=== PATIENT | male | born 1960 | race Caucasian/White ===

== ENCOUNTER 2017-11-04 10:00 | Inpatient (IN) | payer OTHER ==
[2017-11-04 15:07] VITALS: BMI 30.4
--- NOTE | 2017-11-04 15:21 | HP ---
CIWA Score - CIWA Score Nausea/Vomitin Muscle Tremors: 3 Anxiety: 3 Agitation: 3 Paroxysmal Sweats: 2 Orientation: 0-Oriented Tacttile Disturbances: 2-Mild Itch/Numbness/Burn Auditory Disturbances: 2-Mild Harshness/Frighten Visual Disturbances: 2-Mild Sensitivity Headache: 2-Mild CIWA-Ar Total Score: 22 Admission ROS BHS - HPI Chief Complaint: I NEED HELP TO STOP DRINKING ALCOHOL Allergies/Adverse Reactions: Allergies Allergy/AdvReac Type Severity Reaction Status Date / Time pollen extracts Allergy Severe Verified 11/04/17 15:16 History of Present Illness: THIS 57 YEARS OLD MALE WITH ALCOHOL DEPENDENCE,SEEKING DETOX,WITHDRAWAL SYMPTOM, LAST DETOX [facility] 06/17 SYNCOPE DENIED MEDICAL PROBLEM EXCEPT GLAUCOMA BOTH EYES LEGALLY BLIND RIGHT DETACHED RETINA ,GLAUCOMA GLAUCOMA LEFT ,DETACHED RETINA ANXIETY,DEPRESSION,INSOMNIA LONGEST PERIOD OF SOBRIETY 20 YEARS - Ebola screening Have you traveled outside of the country in the last 21 days: No Have you had contact with anyone from an Ebola affected area: No Have you been sick,other than usual withdrawal symptoms: No Do you have a fever: No - Review of Systems Constitutional: Loss of Appetite, Malaise, Night Sweats, Weakness EENT: reports: Nose Congestion, Other (LEGALLY BLINDNESS OF RIGHT GLAUCOMA LEFT ) Respiratory: reports: No Symptoms reported Cardiac: reports: No Symptoms Reported GI: reports: Diarrhea, Nausea, Vomiting, Abdominal cramping : reports: No Symptoms Reported Musculoskeletal: reports: Back Pain, Muscle Pain Integumentary: reports: Dryness Neuro: reports: Headache, Tremors Endocrine: reports: No Symptoms Reported Hematology: reports: No Symptoms Reported Psychiatric: reports: No Sypmtoms Reported, Judgement Intact, Mood/Affect Appropiate, Anxious (INSOMNIA), Depressed Patient History - Patient Medical History Hx Anemia: No Hx Asthma: No Hx Chronic Obstructive Pulmonary Disease (COPD): No Hx Cancer: No Hx Cardiac Disorders: No Hx Congestive Heart Failure: No Hx Hypertension: No Hx Hypercholesterolemia: No Hx Pacemaker: No HX Cerebrovascular Accident: No Hx Seizures: No Hx Dementia: No Hx Diabetes: No Hx Gastrointestinal Disorders: No Hx Liver Disease: No Hx Genitourinary Disorders: No Hx Sexually Transmitted Disorders: No Hx Renal Disease (ESRD): No Hx Thyroid Disease: No Hx Human Immunodeficiency Virus (HIV): No (2015) Hx Hepatitis C: No Hx Depression: Yes (ANXIETY) Hx Suicide Attempt: No Hx Bipolar Disorder: No Hx Schizophrenia: No Other Medical History: NO SUICDAL,NO HOMICIDAL - Patient Surgical History Past Surgical History: Yes Other Surgical History: DETACHED RETINA,BLINDNESS OF RIGHT EYE,GLUCOMA LEFT EYE - PPD History Previous Implant?: Yes Documented Results: Negative w/o proof Implanted On Prior [facility] Admission?: No PPD to be Administered?: Yes - Smoking Cessation Smoking history: Never smoked - Substance & Tx. History Hx Alcohol Use: Yes Hx Substance Use: No Substance Use Type: Alcohol Hx Substance Use Treatment: Yes ([facility] 06/2017) - Substances Abused Alcohol Route: Oral Frequency: Daily Amount used: 1 BOTTLE WINE Age of first use: 17 Date of Last Use: 11/03/17 Family Disease History - Family Disease History Family Disease History: Other: Father (ALCOHOL,), Mother (ALCOHOL, ) Admission Physical Exam S - Vital Signs Vital Signs: Vital Signs - 24 hr 11/04/17 15:02 Temperature 98.6 F Pulse Rate 106 H Respiratory 20 Rate Blood Pressure 136/59 - Physical General Appearance: Yes: Moderate Distress, Tremorous, Irritable, Sweating, Anxious HEENTM: Yes: Normal ENT Inspection (LEGALLY BLIND RIGHT POOR VISOIN LEFT GLAUCOMA,DETACHED RETINA LEFT), Pharynx Normal Respiratory: Yes: Lungs Clear, Normal Breath Sounds, No Respiratory Distress Neck: Yes: Within Normal Limits, Supple, Trachea in good position Breast: Yes: Within Normal Limits Cardiology: Yes: Within Normal Limits, Regular Rhythm, Regular Rate, S1, S2 Abdominal: Yes: Within Normal Limits, Normal Bowel Sounds, Non Tender, Flat, Soft Genitourinary: Yes: Within Normal Limits Back: Yes: Muscle Spasm Musculoskeletal: Yes: full range of Motion, Back pain, Muscle Pain Extremities: Yes: Tremors Neurological: Yes: financial aid counselor II-XII NML intact, Fully Oriented, Alert, Motor Strength 5/5 Integumentary: Yes: Dry Lymphatic: Yes: Within Normal Limits - Diagnostic (1) Alcohol dependence with uncomplicated withdrawal Current Visit: Yes Status: Acute (2) Syncope Current Visit: Yes Status: Acute (3) Blindness of right eye Current Visit: Yes Status: Acute (4) Glaucoma, left eye Current Visit: Yes Status: Acute (5) Insomnia secondary to depression with anxiety Current Visit: Yes Status: Acute (6) Uncomplicated sedative, hypnotic or anxiolytic withdrawal Current Visit: Yes Status: Acute Cleared for Admission [facility] - Detox or Rehab [facility] Level of Care: Medically Managed Detox Regimen/Protocol: Librium [facility] Breath Alcohol Content Breath Alcohol Content: 0 Urine Drug Screen - Results Drug Screen Negative: No Urine Drug Screen Results: TCA-Tricyclic Antidepress
[2017-11-04] MEDS ORDERED: guaiFENesin/D-METHORPHAN HB 10 ML UNIT-DOSE CUPS PO PRN (15:38)
[2017-11-04] MEDS ORDERED: MAG HYDROX/AL HYDROX/SIMETH 30 ML UNIT-DOSE CUP PO PRN (15:38)
[2017-11-04] MEDS ORDERED: MAGNESIUM HYDROX 2400MG/30ML ORAL SUSPENSION 30 ML CUP PO PRN (15:38)
[2017-11-04] MEDS ORDERED: hydrOXYzine PAMOATE 50 MG CAPSULE (FP) PO PRN (15:38)
[2017-11-04] MEDS ORDERED: P-EPHED 60MG/TRIPROLIDI 2.5MG TABLET PO PRN (15:38)
[2017-11-04] MEDS ORDERED: MENTHOL/PHENOL 1 EACH UD MM PRN (15:38)
[2017-11-04] MEDS ORDERED: IBUPROFEN 400 MG TABLET (FP) PO PRN (15:38)
[2017-11-04] MEDS ORDERED: chlordiazePOXIDE HCL 25 MG CAPSULE PO PRN (15:38)
[2017-11-04] MEDS ORDERED: ACETAMINOPHEN 325 MG TABLET (FP) PO PRN (15:38)
[2017-11-04] MEDS ORDERED: chlordiazePOXIDE HCL 25 MG CAPSULE PO ONE (15:38)
[2017-11-04] MEDS ORDERED: MAGNESIUM CITRATE 300 ML BOTTLE PO PRN (15:38)
[2017-11-04] MEDS ORDERED: LOPERAMIDE HCL 2 MG CAPSULE PO PRN (15:38)
[2017-11-04] MEDS: chlordiazePOXIDE HCL 25 MG CAPSULE PO SCH ×2 (18:27→22:10)
[2017-11-04] MEDS ORDERED: DORZOLAMIDE 2% HCL OPHTHALMIC SOLUTION 10 ML BOTTLE OS SCH (22:00)
[2017-11-04] MEDS ORDERED: TIMOLOL 0.5% OPHTHALMIC SOL 5 ML BOTTLE OS SCH (22:00)
[2017-11-04] MEDS: MELATONIN 5 MG TABLETS PO PRN (22:10)
[2017-11-04] MEDS: PATIENT'S OWN MEDICATION (NON-FORMULARY) (Brimonidine Tartrate/Timolol [Combigan 0.2%-0.5% OS SCH (22:10)
[2017-11-04] MEDS: THIAMINE HCL 100 MG TABLET (FP) PO SCH (22:11)
[2017-11-05] MEDS: chlordiazePOXIDE HCL 25 MG CAPSULE PO SCH ×4 (05:38→22:05)
[2017-11-05] MEDS: PRENATAL VITAMINS W/ FOLIC ACID TABLET (FP) PO SCH (10:10)
[2017-11-05] MEDS: PATIENT'S OWN MEDICATION (NON-FORMULARY) (Brimonidine Tartrate/Timolol [Combigan 0.2%-0.5% OS SCH ×2 (10:10→22:05)
--- NOTE | 2017-11-05 10:39 | EKG ---
Test Reason : Blood Pressure : / mmHG Vent. Rate : 089 BPM Atrial Rate : 089 BPM P-R Int : 182 ms QRS Dur : 090 ms QT Int : 374 ms P-R-T Axes : 028 -32 016 degrees QTc Int : 455 ms NORMAL SINUS RHYTHM WITH SINUS ARRHYTHMIA LEFT AXIS DEVIATION VOLTAGE CRITERIA FOR LEFT VENTRICULAR HYPERTROPHY ABNORMAL ECG NO PREVIOUS ECGS AVAILABLE Confirmed by TACOS GARCIA MD ([id number]) on 11/05/2017 10:39:13 AM Referred By: Confirmed By:TACOS GARCIA MD
[2017-11-05 11:14] LABS: HEMATOCRIT 41.2 % (35.4-49); HEMOGLOBIN 14.1 GM/dL (11.7-16.9); MCH 32.4 pg (25.7-33.7); MCHC 34.2 g/dl (32.0-35.9); MEAN CELL VOLUME 94.7 fl (80-96); MEAN PLT VOLUME 7.3 fl (7.5-11.1); PLATELET COUNT 128 K/MM3 (134-434); RBC 4.35 M/mm3 (4.00-5.60); WHITE BLOOD COUNT 3.9 K/mm3 (4.0-10.0)
[2017-11-05 11:34] LABS: CHLORIDE 100 mmol/L (98-107); POTASSIUM 3.1 mmol/L (3.5-5.1); SODIUM 136 mmol/L (136-145)
[2017-11-05 11:58] LABS: ALBUMIN 3.7 g/dl (3.4-5.0); ANION GAP 8 (8-16); BILIRUBIN,TOTAL 1.1 mg/dL (0.2-1.0); BLOOD UREA NITROGEN 15 mg/dL (7-18); CALCIUM 8.6 mg/dL (8.5-10.1); CO2 28 mmol/L (21-32); CREATININE 0.8 mg/dL (0.7-1.3); GLUCOSE,RANDOM 100 mg/dL (74-106); SGOT/AST 76 U/L (15-37); SGPT/ALT 72 U/L (12-78); TOT PROT 6.6 g/dl (6.4-8.2)
[2017-11-05 12:13] LABS: ALK PHOS 72 U/L (45-117)
--- NOTE | 2017-11-05 12:46 | PN ---
S CIWA - CIWA Score Nausea/Vomitin Muscle Tremors: 2 Anxiety: 2 Agitation: 2 Paroxysmal Sweats: 2 Orientation: 0-Oriented Tacttile Disturbances: 1-Very Mild Itch/Numbness Auditory Disturbances: 1-Very Mild Visual Disturbances: 1-Very Mild Sensitivity Headache: 2-Mild CIWA-Ar Total Score: 15 S Progress Note (SOAP) Subjective: Interrupted sleep, abdominal discomfort, generalized muscle aches Objective: 11/05/17 12:45 Vital Signs 11/05/17 11/05/17 06:00 10:00 Temperature 97.2 F L 95.6 F L Pulse Rate 69 90 Respiratory 18 20 Rate Blood Pressure 120/77 127/70 Laboratory Last Values WBC 3.9 K/mm3 (4.0-10.0) L 11/05/17 08:00 RBC 4.35 M/mm3 (4.00-5.60) 11/05/17 08:00 Hgb 14.1 GM/dL (11.7-16.9) 11/05/17 08:00 Hct 41.2 % (35.4-49) 11/05/17 08:00 MCV 94.7 fl (80-96) 11/05/17 08:00 MCH 32.4 pg (25.7-33.7) 11/05/17 08:00 MCHC 34.2 g/dl (32.0-35.9) 11/05/17 08:00 RDW 14.0 % (11.9-15.9) 11/05/17 08:00 Plt Count 128 K/MM3 (134-434) L 11/05/17 08:00 MPV 7.3 fl (7.5-11.1) L 11/05/17 08:00 Sodium 136 mmol/L (136-145) 11/05/17 08:00 Potassium 3.1 mmol/L (3.5-5.1) L 11/05/17 08:00 Chloride 100 mmol/L (98-107) 11/05/17 08:00 Carbon Dioxide 28 mmol/L (21-32) 11/05/17 08:00 Anion Gap 8 (8-16) 11/05/17 08:00 BUN 15 mg/dL (7-18) 11/05/17 08:00 Creatinine 0.8 mg/dL (0.7-1.3) 11/05/17 08:00 Creat Clearance w eGFR > 60 (>60) 11/05/17 08:00 Random Glucose 100 mg/dL (74-106) 11/05/17 08:00 Calcium 8.6 mg/dL (8.5-10.1) 11/05/17 08:00 Total Bilirubin 1.1 mg/dL (0.2-1.0) H 11/05/17 08:00 AST 76 U/L (15-37) H 11/05/17 08:00 ALT 72 U/L (12-78) 11/05/17 08:00 Alkaline Phosphatase 72 U/L (45-117) 11/05/17 08:00 Total Protein 6.6 g/dl (6.4-8.2) 11/05/17 08:00 Albumin 3.7 g/dl (3.4-5.0) 11/05/17 08:00 Labs noted Low potassium level Assessment: 11/05/17 12:45 Withdrawal sx Hypokalemia Plan: Continue detox Potassium supplement 20meq Repeat BMP on 11/07
[2017-11-05] MEDS: POTASSIUM CHLORIDE TABS 20 MEQ TABLET.ER (FP) PO SCH (13:47)
--- NOTE | 2017-11-05 16:02 | CONSULT ---
[facility] Psychiatric Consult - Data Date of interview: 11/05/17 Admission source: [facility] Identifying data: First admission to [facility] for this 57 y/o male seeking detox treatment on for alcohol dependence.Patient is ,a father of one,domiciled and currently employed. Substance Abuse History: Confirmed by patient.Mr Pacheco admits to a 40 year history of alcohol abuse.Details in the current [facility] report : Smoking history: Never smoked. - Substance & Tx. History. Hx Alcohol Use: Yes. Hx Substance Use: No. Substance Use Type: Alcohol. Hx Substance Use Treatment: Yes ([facility] 06/2017). - Substances Abused. Alcohol. Route: Oral. Frequency: Daily. Amount used: 1 BOTTLE WINE. Age of first use: 17. Date of Last Use: Medical History: Glaucoma (left eye),blindness in the right eye (detached retina ).Otherwise the patient endorses good general health. Psychiatric History: Patient denies history of mental illness,psychiatric hospitalizations or OPD care.Mr Pacheco denies history of suicide attempts. Physical/Sexual Abuse/Trauma History: No history. Additional Comment: Urine Drug Screen Results: TCA-Tricyclic Antidepressant.Noted. Mental Status Exam - Mental Status Exam Alert and Oriented to: Time, Place, Person Cognitive Function: Good Patient Appearance: Well Groomed (overweight) Mood: Hopeful, Euthymic Affect: Appropriate, Normal Range Patient Behavior: Fatigued, Appropriate, Cooperative Speech Pattern: Clear, Appropriate Voice Loudness: Normal Thought Process: Intact, Goal Oriented Thought Disorder: Not Present Hallucinations: Denies Suicidal Ideation: Denies Homicidal Ideation: Denies Insight/Judgement: Fair Sleep: Well Appetite: Good Muscle strength/Tone: Normal Gait/Station: Normal Psychiatric Findings - Problem List ([place] 1, 2,3) (1) Alcohol dependence with uncomplicated withdrawal Current Visit: Yes Status: Acute - Initial Treatment Plan Initial Treatment Plan: Psychoeducation.Support.Detoxification.Observe treatment course.
[2017-11-05] MEDS: THIAMINE HCL 100 MG TABLET (FP) PO SCH (22:05)
[2017-11-05] MEDS: MELATONIN 5 MG TABLETS PO PRN (22:07)
[2017-11-06] MEDS: chlordiazePOXIDE HCL 25 MG CAPSULE PO SCH ×2 (05:17→10:08)
--- NOTE | 2017-11-06 09:22 | EKG ---
Test Reason : Blood Pressure : / mmHG Vent. Rate : 072 BPM Atrial Rate : 072 BPM P-R Int : 194 ms QRS Dur : 096 ms QT Int : 402 ms P-R-T Axes : 055 -30 003 degrees QTc Int : 440 ms NORMAL SINUS RHYTHM LEFT AXIS DEVIATION MODERATE VOLTAGE CRITERIA FOR LVH, MAY BE NORMAL VARIANT ABNORMAL ECG WHEN COMPARED WITH ECG OF 04-NOV-2017 18:10, NO SIGNIFICANT CHANGE WAS FOUND Confirmed by RADHA CASTRO, TACOS ([id number]) on 11/06/2017 9:22:27 AM Referred By: Confirmed By:TACOS GARCIA MD
[2017-11-06] MEDS: POTASSIUM CHLORIDE TABS 20 MEQ TABLET.ER (FP) PO SCH (10:08)
[2017-11-06] MEDS: PRENATAL VITAMINS W/ FOLIC ACID TABLET (FP) PO SCH (10:08)
[2017-11-06] MEDS: PATIENT'S OWN MEDICATION (NON-FORMULARY) (Brimonidine Tartrate/Timolol [Combigan 0.2%-0.5% OS SCH ×2 (10:09→22:10)
--- NOTE | 2017-11-06 12:42 | PN ---
S CIWA - CIWA Score Nausea/Vomitin-Mild Nausea/No Vomiting Muscle Tremors: 4-Moderate,w/Arms Extend Anxiety: 3 Agitation: 3 Paroxysmal Sweats: 1-Minimal Palms Moist Orientation: 0-Oriented Tacttile Disturbances: 0-None Auditory Disturbances: 0-None Visual Disturbances: 0-None Headache: 0-None Present CIWA-Ar Total Score: 12 BHS Progress Note (SOAP) Subjective: sweat restlessness tremor anxiety Objective: 11/06/17 12:42 Vital Signs Temperature 97.3 F L 11/06/17 10:00 Pulse Rate 79 11/06/17 10:00 Respiratory Rate 16 11/06/17 10:00 Blood Pressure 118/67 11/06/17 10:00 O2 Sat by Pulse Oximetry (%) Laboratory Last Values WBC 3.9 K/mm3 (4.0-10.0) L 11/05/17 08:00 RBC 4.35 M/mm3 (4.00-5.60) 11/05/17 08:00 Hgb 14.1 GM/dL (11.7-16.9) 11/05/17 08:00 Hct 41.2 % (35.4-49) 11/05/17 08:00 MCV 94.7 fl (80-96) 11/05/17 08:00 MCH 32.4 pg (25.7-33.7) 11/05/17 08:00 MCHC 34.2 g/dl (32.0-35.9) 11/05/17 08:00 RDW 14.0 % (11.9-15.9) 11/05/17 08:00 Plt Count 128 K/MM3 (134-434) L 11/05/17 08:00 MPV 7.3 fl (7.5-11.1) L 11/05/17 08:00 Sodium 136 mmol/L (136-145) 11/05/17 08:00 Potassium 3.1 mmol/L (3.5-5.1) L 11/05/17 08:00 Chloride 100 mmol/L (98-107) 11/05/17 08:00 Carbon Dioxide 28 mmol/L (21-32) 11/05/17 08:00 Anion Gap 8 (8-16) 11/05/17 08:00 BUN 15 mg/dL (7-18) 11/05/17 08:00 Creatinine 0.8 mg/dL (0.7-1.3) 11/05/17 08:00 Creat Clearance w eGFR > 60 (>60) 11/05/17 08:00 Random Glucose 100 mg/dL (74-106) 11/05/17 08:00 Calcium 8.6 mg/dL (8.5-10.1) 11/05/17 08:00 Total Bilirubin 1.1 mg/dL (0.2-1.0) H 11/05/17 08:00 AST 76 U/L (15-37) H 11/05/17 08:00 ALT 72 U/L (12-78) 11/05/17 08:00 Alkaline Phosphatase 72 U/L (45-117) 11/05/17 08:00 Total Protein 6.6 g/dl (6.4-8.2) 11/05/17 08:00 Albumin 3.7 g/dl (3.4-5.0) 11/05/17 08:00 RPR Titer Nonreactive (NONREACTIVE) 11/05/17 08:00 lab noted 11/06/17 12:42 potassium supplement Assessment: 11/06/17 12:43 withdrawal sx hypokalemia Plan: repeat K+ 11/07/17 continue potassium
[2017-11-06] MEDS: chlordiazePOXIDE 5 MG CAPSULE PO SCH ×2 (18:24→22:10)
[2017-11-06] MEDS: MELATONIN 5 MG TABLETS PO PRN (22:10)
[2017-11-06] MEDS: THIAMINE HCL 100 MG TABLET (FP) PO SCH (22:10)
[2017-11-07] MEDS: chlordiazePOXIDE 5 MG CAPSULE PO SCH ×2 (05:06→10:11)
[2017-11-07] MEDS: PATIENT'S OWN MEDICATION (NON-FORMULARY) (Brimonidine Tartrate/Timolol [Combigan 0.2%-0.5% OS SCH ×2 (10:10→22:19)
[2017-11-07] MEDS: PRENATAL VITAMINS W/ FOLIC ACID TABLET (FP) PO SCH (10:11)
[2017-11-07] MEDS: POTASSIUM CHLORIDE TABS 20 MEQ TABLET.ER (FP) PO SCH (10:11)
--- NOTE | 2017-11-07 11:03 | PN ---
BHS Progress Note (SOAP) Subjective: felling better less sweat no tremor sleep better Objective: 11/07/17 11:02 Vital Signs Temperature 96.8 F L 11/07/17 10:05 Pulse Rate 82 11/07/17 10:05 Respiratory Rate 20 11/07/17 10:05 Blood Pressure 130/83 11/07/17 10:05 O2 Sat by Pulse Oximetry (%) Laboratory Last Values WBC 3.9 K/mm3 (4.0-10.0) L 11/05/17 08:00 RBC 4.35 M/mm3 (4.00-5.60) 11/05/17 08:00 Hgb 14.1 GM/dL (11.7-16.9) 11/05/17 08:00 Hct 41.2 % (35.4-49) 11/05/17 08:00 MCV 94.7 fl (80-96) 11/05/17 08:00 MCH 32.4 pg (25.7-33.7) 11/05/17 08:00 MCHC 34.2 g/dl (32.0-35.9) 11/05/17 08:00 RDW 14.0 % (11.9-15.9) 11/05/17 08:00 Plt Count 128 K/MM3 (134-434) L 11/05/17 08:00 MPV 7.3 fl (7.5-11.1) L 11/05/17 08:00 Sodium 136 mmol/L (136-145) 11/05/17 08:00 Potassium 3.1 mmol/L (3.5-5.1) L 11/05/17 08:00 Chloride 100 mmol/L (98-107) 11/05/17 08:00 Carbon Dioxide 28 mmol/L (21-32) 11/05/17 08:00 Anion Gap 8 (8-16) 11/05/17 08:00 BUN 15 mg/dL (7-18) 11/05/17 08:00 Creatinine 0.8 mg/dL (0.7-1.3) 11/05/17 08:00 Creat Clearance w eGFR > 60 (>60) 11/05/17 08:00 Random Glucose 100 mg/dL (74-106) 11/05/17 08:00 Calcium 8.6 mg/dL (8.5-10.1) 11/05/17 08:00 Total Bilirubin 1.1 mg/dL (0.2-1.0) H 11/05/17 08:00 AST 76 U/L (15-37) H 11/05/17 08:00 ALT 72 U/L (12-78) 11/05/17 08:00 Alkaline Phosphatase 72 U/L (45-117) 11/05/17 08:00 Total Protein 6.6 g/dl (6.4-8.2) 11/05/17 08:00 Albumin 3.7 g/dl (3.4-5.0) 11/05/17 08:00 RPR Titer Nonreactive (NONREACTIVE) 11/05/17 08:00 lab noted Assessment: 11/07/17 11:03 mild withdrawal sx Plan: medically supervised detox
[2017-11-07 12:21] LABS: URINE APPEARANCE CLEAR; URINE BILIRUBIN NEGATIVE (<2.0 mg/dL); URINE BLOOD NEGATIVE (NEGATIVE); URINE COLOR YELLOW; URINE GLUCOSE (UA) NEGATIVE (NEGATIVE); URINE KETONE NEGATIVE (NEGATIVE); URINE LEUK ESTERASE NEGATIVE (NEGATIVE); URINE NITRITE NEGATIVE (NEGATIVE); URINE PROTEIN NEGATIVE (NEGATIVE); URINE UROBILINOGEN NEGATIVE mg/dL (0.2-1.0)
[2017-11-07 12:33] LABS: ANION GAP 9 (8-16); BLOOD UREA NITROGEN 11 mg/dL (7-18); CALCIUM 9.3 mg/dL (8.5-10.1); CHLORIDE 103 mmol/L (98-107); CO2 29 mmol/L (21-32); CREATININE 0.8 mg/dL (0.7-1.3); GLUCOSE,RANDOM 83 mg/dL (74-106); POTASSIUM 4.2 mmol/L (3.5-5.1); SODIUM 141 mmol/L (136-145)
[2017-11-07] MEDS: chlordiazePOXIDE HCL 10 MG CAPSULE PO SCH ×2 (17:20→22:20)
[2017-11-07] MEDS: THIAMINE HCL 100 MG TABLET (FP) PO SCH (22:20)
[2017-11-07] MEDS: MELATONIN 5 MG TABLETS PO PRN (22:21)
[2017-11-08] MEDS: chlordiazePOXIDE HCL 10 MG CAPSULE PO SCH ×2 (05:42→10:07)
[2017-11-08 06:22] VITALS: BP 131/79; PULSE 71; TEMP 97.7
--- NOTE | 2017-11-08 09:15 | DS ---
[facility] Detox Discharge Summary Admission Date: 11/04/17 Discharge Date: 11/08/17 - History Present History: Alcohol Dependence Additional Comments: 57 years old male admitted for alcohol withdrawal sx completed alcohol detox regimen tolerated well patient is alert oriented x 3 no acute distress - Physical Exam Results Vital Signs: Vital Signs Temperature 97.7 F 11/08/17 06:22 Pulse Rate 71 11/08/17 06:22 Respiratory Rate 18 11/08/17 06:22 Blood Pressure 131/79 11/08/17 06:22 O2 Sat by Pulse Oximetry (%) Pertinent Admission Physical Exam Findings: withdrawal sx Vital Signs Temperature 97.7 F 11/08/17 06:22 Pulse Rate 71 11/08/17 06:22 Respiratory Rate 18 11/08/17 06:22 Blood Pressure 131/79 11/08/17 06:22 O2 Sat by Pulse Oximetry (%) Laboratory Last Values WBC 3.9 K/mm3 (4.0-10.0) L 11/05/17 08:00 RBC 4.35 M/mm3 (4.00-5.60) 11/05/17 08:00 Hgb 14.1 GM/dL (11.7-16.9) 11/05/17 08:00 Hct 41.2 % (35.4-49) 11/05/17 08:00 MCV 94.7 fl (80-96) 11/05/17 08:00 MCH 32.4 pg (25.7-33.7) 11/05/17 08:00 MCHC 34.2 g/dl (32.0-35.9) 11/05/17 08:00 RDW 14.0 % (11.9-15.9) 11/05/17 08:00 Plt Count 128 K/MM3 (134-434) L 11/05/17 08:00 MPV 7.3 fl (7.5-11.1) L 11/05/17 08:00 Sodium 141 mmol/L (136-145) 11/07/17 07:00 Potassium 4.2 mmol/L (3.5-5.1) D 11/07/17 07:00 Chloride 103 mmol/L (98-107) 11/07/17 07:00 Carbon Dioxide 29 mmol/L (21-32) 11/07/17 07:00 Anion Gap 9 (8-16) 11/07/17 07:00 BUN 11 mg/dL (7-18) D 11/07/17 07:00 Creatinine 0.8 mg/dL (0.7-1.3) 11/07/17 07:00 Creat Clearance w eGFR > 60 (>60) 11/05/17 08:00 Random Glucose 83 mg/dL (74-106) 11/07/17 07:00 Calcium 9.3 mg/dL (8.5-10.1) 11/07/17 07:00 Total Bilirubin 1.1 mg/dL (0.2-1.0) H 11/05/17 08:00 AST 76 U/L (15-37) H 11/05/17 08:00 ALT 72 U/L (12-78) 11/05/17 08:00 Alkaline Phosphatase 72 U/L (45-117) 11/05/17 08:00 Total Protein 6.6 g/dl (6.4-8.2) 11/05/17 08:00 Albumin 3.7 g/dl (3.4-5.0) 11/05/17 08:00 Urine Color Yellow 11/07/17 07:00 Urine Appearance Clear 11/07/17 07:00 Urine pH 7.0 (5.0-8.0) 11/07/17 07:00 Ur Specific [place] 1.012 (1.001-1.035) 11/07/17 07:00 Urine Protein Negative (NEGATIVE) 11/07/17 07:00 Urine Glucose (UA) Negative (NEGATIVE) 11/07/17 07:00 Urine Ketones Negative (NEGATIVE) 11/07/17 07:00 Urine Blood Negative (NEGATIVE) 11/07/17 07:00 Urine Nitrite Negative (NEGATIVE) 11/07/17 07:00 Urine Bilirubin Negative (<2.0 mg/dL) 11/07/17 07:00 Urine Urobilinogen Negative mg/dL (0.2-1.0) 11/07/17 07:00 Ur Leukocyte Esterase Negative (NEGATIVE) 11/07/17 07:00 RPR Titer Nonreactive (NONREACTIVE) 11/05/17 08:00 lab noted - Treatment Hospital Course: Detox Protocol Followed, Detoxed Safely, Responded well, Discharged Condition Good, Rehab Referral Accepted Patient has Accepted a Rehab Referral to: [facility] outpatient - Medication Discharge Medications: Ambulatory Orders clonazePAM [Klonopin -] 0.5 mg PO DAILY 11/04/17 Brimonidine Tartrate/Timolol [Combigan 0.2%-0.5% Eye Drops] 1 drop OS BID #1 drops 11/08/17 - Diagnosis (1) Alcohol dependence with uncomplicated withdrawal Current Visit: Yes Status: Acute (2) Glaucoma, left eye Current Visit: Yes Status: Chronic Qualifiers: Glaucoma type: unspecified Qualified Code(s): H40.9 - Unspecified glaucoma (3) Insomnia secondary to depression with anxiety Current Visit: Yes Status: Suspected - AMA Did Patient Leave Against Medical Advice: No
[2017-11-08] MEDS: PATIENT'S OWN MEDICATION (NON-FORMULARY) (Brimonidine Tartrate/Timolol [Combigan 0.2%-0.5% OS SCH (09:31)
[2017-11-08] MEDS: PRENATAL VITAMINS W/ FOLIC ACID TABLET (FP) PO SCH (09:31)
[2017-11-08] MEDS: POTASSIUM CHLORIDE TABS 20 MEQ TABLET.ER (FP) PO SCH (09:31)
== END 2017-11-08 09:55 | disposition home or self-care (01) | DRG 775 ==
LOC: YASAS 10:00 → Y6N 17:02
PROVIDERS: ADMIT Internal Medicine; ATTEND Internal Medicine
PROC: HZ2ZZZZ Detoxification Services for Substance Abuse Treatment (ICD-10-PCS; principal; 2017-11-04)
DX: F10.230 Alcohol dependence with withdrawal, uncomplicated (principal); F51.05 Insomnia due to other mental disorder; H54.40 Blindness, one eye, unspecified eye; H40.89 Other specified glaucoma
CPT/HCPCS: 36415; 80048; 80053; 81003; 85027; 86593; 93005; 93010